=== PATIENT | female | born 1965 | race African-American/Black ===

== ENCOUNTER 2020-04-02 11:38 | Emergency (ER) | payer OTHER ==
[~2020-04-02] VITALS: Ht 172.7 cm; Wt 80.0 kg
[2020-04-02 13:17] VITALS: BP 133/81
[2020-04-02] MEDS: HYDROCODONE/ACETAMINOPHEN 5/325MG TABLET PO ONE (13:17)
[2020-04-02 14:41] LABS: HEMATOCRIT 47.1 % (36.0-48.0); HEMOGLOBIN 14.9 g/dL (12.0-16.0); MEAN CORPUSCULAR HEMOGLOBIN 28.5 pg (28.0-32.0); MEAN CORPUSCULAR VOLUME 89.7 fL (81.0-99.0); PLATELET 138 x1000/uL (130-400); RED BLOOD CELL COUNT 5.25 mill/uL (4.2-5.4); RED CELL DISTRIBUTION WIDTH 17.8 % (11.6-14.6)
[2020-04-02 14:45] LABS: CHLORIDE 95 mEq/L (98-107)
== END 2020-04-02 16:08 | disposition home or self-care (01) ==
LOC: ER 11:38
DX: S42.391A Other fracture of shaft of right humerus, initial encounter for closed fracture (principal); W18.39XA Other fall on same level, initial encounter; Y93.89 Activity, other specified; Y92.89 Other specified places as the place of occurrence of the external cause; Y99.8 Other external cause status; I13.2 Hypertensive heart and chronic kidney disease with heart failure and with stage 5 chronic kidney disease, or end stage renal disease; N18.6 End stage renal disease; Z99.2 Dependence on renal dialysis; Z86.73 Personal history of transient ischemic attack (TIA), and cerebral infarction without residual deficits; Z88.0 Allergy status to penicillin; Z88.2 Allergy status to sulfonamides
CPT/HCPCS: 36415; 73030; 73060; 73080; 80053; 85027; 93005; 99285; L3670